=== PATIENT | female | born 2000 | race African-American/Black ===

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

== ENCOUNTER 2019-06-15 17:33 | Emergency (ER) | payer OTHER ==
[2019-06-15 17:51] VITALS: BP 114/69; PULSE 77; TEMP 97.8; BMI 20.5
--- NOTE | 2019-06-15 18:08 | PDOC ---
Rapid Medical Evaluation Chief Complaint: Back Pain Time Seen by Provider: 06/15/19 18:06 Medical Evaluation: Allergies Allergy/AdvReac Type Severity Reaction Status Date / Time No Known Allergies Allergy Verified 06/15/19 18:04 Vital Signs Temp Pulse Resp BP Pulse Ox 97.8 F 77 20 114/69 98 06/15/19 17:48 06/15/19 17:48 06/15/19 17:48 06/15/19 17:48 06/15/19 17:48 06/15/19 18:06 Pt c/o: chronic low back pain intermittently now worsening causing pain down both legs, worse when standing up from sitting position and walking, no incontinence pt on brief exam: no vertebral tenderness, + sciatica tenderness, vss Pt ordered for: none pt to proceed to the ED Discharge Disposition - Diagnosis Low back pain - Discharge Dispostion Condition at time of disposition: Stable Last Admission D/C Date: 08/27/17 - Referrals - Patient Instructions - Post Discharge Activity
[2019-06-15] MEDS ORDERED: MAG HYDROX/AL HYDROX/SIMETH 30 ML UNIT-DOSE CUP PO ONE (18:25)
[2019-06-15] MEDS ORDERED: KETOROLAC TROMETHAMINE 30 MG/1 ML VIAL IM ONE (18:25)
[2019-06-15] MEDS ORDERED: FAMOTIDINE 20 MG TABLET PO ONE (18:25)
[2019-06-15] MEDS ORDERED: MAG HYDROX/AL HYDROX/SIMETH 30 ML UNIT-DOSE CUP ONE (18:47)
[2019-06-15] MEDS ORDERED: FAMOTIDINE 20 MG TABLET ONE (18:47)
[2019-06-15] MEDS ORDERED: KETOROLAC TROMETHAMINE 30 MG/1 ML VIAL ONE (18:47)
--- NOTE | 2019-06-15 18:59 | PDOC ---
History of Present Illness - General Chief Complaint: Back Pain Stated Complaint: Back pain/leg pain Time Seen by Provider: 06/15/19 18:06 History Source: Patient Exam Limitations: Clinical Condition - History of Present Illness Initial Comments: 06/15/19 18:46 Patient with past medical history of sciatica with a history of intermittent chronic back pain presented with complaint of persistent lower back pain which has not been improving with naproxen. Patient also reported report diffuse abdominal pain which has been persistent for a week with nausea and vomiting. Patient has been to multiple ED emergency room with same complaint the past week requesting pain management. Patient was seen in [facility] a week ago on 2 occasion according to patient for same symptoms and all work-up including blood work and abdominal pelvic CAT scan was negative. Patient reporting pelvic pain during ER visit and was sent home on doxycycline for possible PID. Patient was again seen in [facility] 2 days ago for same symptoms with negative work-up. Patient report she is only given ibuprofen and naproxen for symptoms but has not been working for symptoms and the only thing that works for her is Percocet. Patient was sitting comfortably until seen by commercial underwriter which patient suddenly started complaining of worsening abdominal pain to her abdomen requesting pain meds. Denies fever, chills, recent travel, diarrhea or constipation. Patient has not followed up with PCP and has only been visiting the ER for symptom. Patient report history of acid reflux.Patient currently on Doxycycline given by ED for possible PID and on day 5 or 14 days course Is this a multiple visit Asthma Patient?: No Timing/Duration: 1 week Past History - Past Medical History Allergies/Adverse Reactions: Allergies Allergy/AdvReac Type Severity Reaction Status Date / Time No Known Allergies Allergy Verified 06/15/19 18:04 Home Medications: Ambulatory Orders 19 Tablet 1 tab PO DAILY 08/20/17 Ferrous Sulfate [Feosol] 325 mg PO DAILY 08/25/17 Sennosides/Docusate Sodium [Pericolace -] 1 each PO HS 08/25/17 Famotidine [Pepcid -] 40 mg PO DAILY #7 tablet 06/15/19 Mag Hydrox/Aluminum Hyd/Simeth [Maalox Advanced Suspension] 30 ml PO Q8H PRN # 200 ml 06/15/19 Methocarbamol [Robaxin -] 500 mg PO BID #14 tablet 06/15/19 Methylprednisolone [Medrol Dose Breezy] 4 mg PO ASDIR #21 tablet 06/15/19 Ondansetron [Zofran *Odt*] 4 mg SL Q8H PRN #20 od.tablet 06/15/19 Asthma: No Cancer: No Cardiac Disorders: Yes (HEART MURMUR) COPD: No Diabetes: No HTN: No Seizures: No Thyroid Disease: No - Immunization History Immunization Up to Date: No - Psycho Social/Smoking Cessation Hx Smoking History: Never smoked Have you smoked in the past 12 months: No Information on smoking cessation initiated: No Hx Alcohol Use: No Drug/Substance Use Hx: No Hx Substance Use Treatment: No Review of Systems - Review of Systems Able to Perform ROS?: Yes Is the patient limited [place] proficient: No Constitutional: No: Chills, Fever, Malaise HEENTM: No: Symptoms Reported, See HPI, Eye Pain, Blurred Vision, Tearing, Recent change in vision, Double Vision, Cataracts, Ear Pain, Ocular Prothesis, Ear Discharge, Nose Pain, Nose Congestion, Tinnitus, Nose Bleeding, Hearing Loss , Throat Pain, Throat Swelling, Mouth Pain, Dental Problems, Difficulty Swallowing, Mouth Swelling, Other Respiratory: No: Symptoms reported, See HPI, Cough, Orthopnea, Shortness of Breath, SOB with Exertion, SOB at Rest, Stridor, Wheezing, Productive cough, Hemoptysis, Other Cardiac (ROS): No: Symptoms Reported, See HPI, Chest Pain, Edema, Irregular Heart Rate, Lightheadedness, Palpitations, Syncope, Chest Tightness, Other ABD/GI: Yes: Symptoms Reported, See HPI, Nausea, Vomiting, Abdominal cramping. No: Constipated, Diarrhea, Difficulty Swallowing, Poor Appetite, Rectal Bleeding , Indigestion, Tarry Stools : No: Burning, Discharge, Frequency, Urgency Musculoskeletal: Yes: Symptoms Reported, See HPI, Back Pain, Muscle Pain Integumentary: No: Symptoms Reported (`) Neurological: Yes: Symptoms reported, See HPI, Tingling (posterior b/l thigh). No: Headache, Numbness, Paresthesia All Other Systems: Reviewed and Negative *Physical Exam - Vital Signs Last Vital Signs Temp Pulse Resp BP Pulse Ox 97.8 F 77 20 114/69 98 06/15/19 17:48 06/15/19 17:48 06/15/19 17:48 06/15/19 17:48 06/15/19 17:48 - Physical Exam 06/15/19 19:03 GENERAL: Well developed, well nourished. Awake and alert. No acute distress. CARDIOVASCULAR: Regular rate and rhythm. No murmurs, rubs, or gallops. PULMONARY: No evidence of respiratory distress. Lungs clear to auscultation bilaterally. No wheezing, rales or rhonchi. ABDOMINAL: Soft. Subjective diffuse moderate abdominal tenderness with increased tenderness to epigastric region. non-distended. No rebound or guarding. No organomegaly. Normoactive bowel sounds MUSCULOSKELETAL : Moderate subjective tenderness of bilateral paravertebral muscle of lower lumbosacral spine of L3-S2. Negative straight leg test. No midline tenderness. SKIN: Warm and dry. Normal capillary refill. No rashes. No jaundice. NEUROLOGICAL: Alert, awake, appropriate. No motor deficits in the lower extremities. Gait is normal without ataxia. PSYCHIATRIC: Cooperative. Good eye contact. Appropriate mood and affect. General Appearance: Yes: Nourished, Appropriately Dressed. No: Apparent Distress ED Treatment Course - RADIOLOGY Radiology Studies Ordered: Category Date Time Status SPINE-LUMBAR SACRAL [RAD] Stat Radiology 06/15/19 18:27 Ordered Medical Decision Making - Medical Decision Making 06/15/19 18:51 Patient with past medical history of sciatica with a history of intermittent chronic back pain presented with complaint of persistent lower back pain which has not been improving with naproxen. Patient also reported report diffuse abdominal pain which has been persistent for a week with nausea and vomiting. Patient has been to multiple ED emergency room with same complaint the past week requesting pain management. Patient was seen in [facility] in [place] a week ago on 2 occasion according to patient for same symptoms and all work-up including blood work and abdominal pelvic CAT scan was negative. Patient reporting pelvic pain during ER visit and was sent home on doxycycline for possible PID. Patient was again seen in [facility] in the [place] 2 days ago for same symptoms with negative work-up. Patient report she is only given ibuprofen and naproxen for symptoms but has not been working for symptoms and the only thing that works for her is Percocet. Patient was sitting comfortably until seen by commercial underwriter which patient suddenly started complaining of worsening abdominal pain to her abdomen requesting pain meds. Denies fever, chills, recent travel, diarrhea or constipation. Patient has not followed up with PCP and has only been visiting the ER for symptom. Patient report history of acid reflux.Patient currently on Doxycycline given by ED for possible PID and on day 5 or 14 days course Clinical exam significant for subjective diffuse abdominal pains on exam without guarding or rebound with increased pain to epigastric region. Patient also reported subjective bilateral diffuse lower back pain radiating to posterior bilateral thigh area. No CVA tenderness on exam. Patient left the room for few minutes and seen again by commercial underwriter after 20 minutes and was sitting in the chair comfortably talking to her boyfriend in the room. Patient started complaining of pain after seen by provider. Patient afebrile. Patient likely pain medication seeking as she has been [place] different [place]. Will do a trial of Pepcid 40 mg p.o. and Maalox 30 mL p.o. with Toradol 30 IM. X-ray of lumbosacral spine ordered after negative urine test to rule out worsening spine pathology. Patient will be discharged home on Medrol Breezy for anti-inflammatory effect and Robaxin for spasm with Pepcid and Maalox for possible gastritis with GI follow-up for abdominal pain and advised to follow- up with INTERMODAL OWNER OPERATOR TRUCK DRIVER for pelvic pain 06/15/19 19:29 X-ray of lumbosacral unremarkable and patient walking around stuck on her cell phone in no acute distress. Patient stable for discharge on Medrol Breezy for anti -inflammatory effect due to history of gastritis including take NSAIDs with Robaxin as needed for back pain and Pepcid for abdominal pain with GI follow-up Discharge - Discharge Information Problems reviewed: Yes Clinical Impression/Diagnosis: Low back pain Qualifiers: Chronicity: acute Back pain laterality: bilateral Sciatica presence: with sciatica Sciatica laterality: bilateral sciatica Qualified Code(s): M54.42 - Lumbago with sciatica, left side; M54.41 - Lumbago with sciatica, right side Gastritis Qualifiers: Gastritis type: unspecified gastritis Chronicity: chronic Gastritis bleeding: without bleeding Qualified Code(s): K29.50 - Unspecified chronic gastritis without bleeding Abdominal pain Qualifiers: Abdominal location: generalized Qualified Code(s): R10.84 - Generalized abdominal pain Condition: Stable Disposition: HOME - Admission No - Additional Discharge Information Prescriptions: Famotidine [Pepcid -] 40 mg PO DAILY #7 tablet Mag Hydrox/Aluminum Hyd/Simeth [Maalox Advanced Suspension] 30 ml PO Q8H PRN # 200 ml PRN Reason: abdominal discomfort Methocarbamol [Robaxin -] 500 mg PO BID #14 tablet Methylprednisolone [Medrol Dose Breezy] 4 mg PO ASDIR #21 tablet Ondansetron [Zofran *Odt*] 4 mg SL Q8H PRN #20 od.tablet PRN Reason: nausea - Follow up/Referral Referrals: Layo Hedrick MD [Staff Physician] - - Patient Discharge Instructions Patient Printed Discharge Instructions: DI for Back Pain With Sciatica, DI for Gastritis Additional Instructions: Your x-ray is normal. Your symptoms is likely abdominal pain from gastritis. Take prescribed medication as prescribed for gastritis and medication follow-up back pain. Follow-up referred GI doctor Dr. Hedrick as instructed for follow-up menu to abdominal pain. Stop previous prescribed pain meds and take only new prescribed pain meds and continue doxycycline antibiotics as prescribed. Follow -up with your INTERMODAL OWNER OPERATOR TRUCK DRIVER - Post Discharge Activity
== END 2019-06-15 19:32 | disposition home or self-care (01) ==
LOC: JERFT 17:33
PROC: 3E0233Z Introduction of Anti-inflammatory into Muscle, Percutaneous Approach (ICD-10-PCS; principal; 2019-06-15)
DX: M54.42 Lumbago with sciatica, left side (principal); G89.29 Other chronic pain; R01.1 Cardiac murmur, unspecified
CPT/HCPCS: 72100-TC-FY; 84703; 99281-25

== ENCOUNTER 2020-09-15 23:05 | Emergency (ER) | payer OTHER ==
[2020-09-15 23:43] VITALS: BP 119/71; PULSE 89; TEMP 98.6; BMI 20.7
== END 2020-09-16 00:54 | disposition home or self-care (01) ==
LOC: JER 23:05
DX: S63.635A Sprain of interphalangeal joint of left ring finger, initial encounter (principal)
CPT/HCPCS: 73110-TC-LT-FY; 73130-TC-LT-FY; 99283-25